=== PATIENT | male | born 1970 | race Hispanic/Latino ===

== ENCOUNTER 2018-03-17 05:37 | Day surgery (SDC) | payer BC, OTHER ==
[2015-01-31 13:45] VITALS: PULSE 75
[2018-03-16 11:16] VITALS: BMI 43.1
[2018-03-17] MEDS ORDERED: Flumazenil 0.1 mg/ml Inj (5ml) IVP ONE (08:25)
[2018-03-17] MEDS ORDERED: Naloxone 0.4 mg/ml Inj (Adult) ONE (08:25)
[2018-03-17] MEDS ORDERED: Midazolam 2 MG/2 ML VIAL ONE ×3 (08:25→08:49)
[2018-03-17] MEDS ORDERED: Midazolam 2 MG/2 ML VIAL IV ONE ×4 (08:26→08:49)
--- NOTE | 2018-03-17 09:37 | CARD ---
APPROVED REPORT Date of service: 03/17/2018 EKG Measurement Heart [id number] <Conclusion> Atrial fibrillation Nonspecific T wave abnormality, probably digitalis effect Abnormal ECG
[2018-03-17 10:49] VITALS: RESP 18; TEMP 97.5
[2018-03-17 11:32] VITALS: O2SAT 98
[2018-03-17 11:43] VITALS: BP 99/62; PULSE 40
--- NOTE | 2018-03-17 15:48 | CARD ---
APPROVED REPORT Date of service: 03/17/2018 EKG Measurement Heart [id number] <Conclusion> Marked sinus bradycardia Abnormal ECG
== END 2018-03-17 11:50 | disposition home or self-care (01) ==
LOC: CATH 05:37
PROVIDERS: ATTEND Internal Medicine Cardiovascular Disease
DX: I48.0 Paroxysmal atrial fibrillation (principal)
CPT/HCPCS: 93005; 92960; J2250; J3010

== ENCOUNTER 2018-07-29 09:39 | Emergency (ER) | payer BC ==
[2018-07-29 09:40] VITALS: PULSE 75; BMI 43.1
[2018-07-29 10:11] VITALS: TEMP 98.3
--- NOTE | 2018-07-29 11:08 | ED PDOC ---
Arrival/HPI - General Chief Complaint: Palpitations Historian: Patient - History of Present Illness Narrative History of Present Illness (Text): 07/29/18 11:00 Bernardo Huber is a 48 year old male, with a past medical history of paroxysmal a-fib and sleep apnea, who presents to the emergency department complaining of intermittent palpitations since yesterday. Patient notes dizziness upon standing. Patient states detecting heart rate in the 120's. P atient's symptoms have currently resolved and are controlled by Sotalol. Patient states having episodes of a-fib every 4-6 months after a stressful event. Patient's last episode was 4 to 6 months ago. 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 Patient denies any fevers, chills, headache, chest pain, shortness of breath, dyspnea on exertion, cough, abdominal pain, nausea, vomiting, diarrhea, back pain, neck pain, or any other complaint. Time/Duration: 24 hours (yesterday) Symptom Onset: Sudden Symptom Course: Resolved Activities at Onset: Light Context: Home Past Medical History - Provider Review Nursing Documentation Reviewed: Yes - Past History Past History: Non-Contributing - Infectious Disease Hx of Infectious Diseases: None - Past Medical History Past Medical History: No Previous - Cardiac Hx Cardiac Disorders: Yes Hx Atrial Fibrillation: Yes - Pulmonary Hx Respiratory Disorders: No - Neurological Hx Neurological Disorder: No - HEENT Hx HEENT Disorder: No - Renal Hx Renal Disorder: No - Endocrine/Metabolic Hx Endocrine Disorders: No - Hematological/Oncological Hx Blood Disorders: Yes Other/Comment: HEMOCHROMATOSIS - Integumentary Hx Dermatological Disorder: No - Musculoskeletal/Rheumatological Hx Musculoskeletal Disorders: No - Gastrointestinal Hx Gastrointestinal Disorders: No - Genitourinary/Gynecological Hx Genitourinary Disorders: No - Psychiatric Hx Psychophysiologic Disorder: No Hx Substance Use: No - Past Surgical History Past Surgical History: No Previous - Surgical History Hx Cardiac Catheterization: Yes - Anesthesia Hx Anesthesia: Yes Hx Anesthesia Reactions: No Hx Malignant Hyperthermia: No - Suicidal Assessment Feels Threatened In Home Enviroment: No Family/Social History - Physician Review Nursing Documentation Reviewed: Yes Family/Social History: No Known Family HX Smoking Status: Never Smoked Hx Alcohol Use: Yes (SOCIAL. QUIT 2014) Hx Substance Use: No Hx Substance Use Treatment: No Allergies/Home Meds Allergies/Adverse Reactions: Allergies MELONS Allergy (Severe, Uncoded 07/29/18 09:56) SWELLING LIPS/THROAT Home Medications: Home Meds Medication Instructions Recorded Confirmed Rivaroxaban [Xarelto] 20 mg PO QPM 01/31/15 07/29/18 ALPRAZolam [Xanax] 0.25 mg PO PRN PRN 03/16/18 07/29/18 Lisinopril [Zestril] 10 mg PO QPM 03/16/18 07/29/18 Sotalol [Betapace] 120 mg PO QAM 03/16/18 07/29/18 Sotalol [Betapace] 180 mg PO QPM 03/17/18 07/29/18 Review of Systems - Physician Review All systems were reviewed & negative as marked: Yes - Review of Systems Constitutional: absent: Fevers, Night Sweats Respiratory: absent: SOB, Cough Cardiovascular: Palpitations (intermittent palpitations). absent: Chest Pain, KAM Gastrointestinal: absent: Abdominal Pain, Diarrhea, Nausea, Vomiting Musculoskeletal: absent: Back Pain, Neck Pain Neurological: Dizziness. absent: Headache Physical Exam Vital Signs Reviewed: Yes Vital Signs Temp Pulse Resp BP Pulse Ox 07/29/18 09:58 98.3 F 60 16 121/60 96 Temperature: Afebrile Blood Pressure: Normal Pulse: Regular Respiratory Rate: Normal Appearance: Positive for: Well-Appearing, Non-Toxic, Comfortable Pain Distress: None Mental Status: Positive for: Alert and Oriented X 3 - Systems Exam Head: Present: Atraumatic, Normocephalic Pupils: Present: PERRL Extroacular Muscles: Present: EOMI Conjunctiva: Present: Normal Mouth: Present: Moist Mucous Membranes Neck: Present: Normal Range of Motion Respiratory/Chest: Present: Clear to Auscultation, Good Air Exchange. No: Respiratory Distress, Accessory Muscle Use Cardiovascular: Present: Normal S1, S2, Irregular Rhythm. No: Murmurs Abdomen: No: Tenderness, Distention, Peritoneal Signs Back: Present: Normal Inspection Lower Extremity: Present: Normal Inspection. No: Edema Skin: Present: Warm, Dry, Normal Color. No: Rashes Psychiatric: Present: Alert, Oriented x 3, Normal Insight, Normal Concentration Medical Decision Making ED Course and Treatment: 07/29/18 11:13 Impression: Patient is a 48 year old male who presents to the emergency department complaining of intermittent palpitations since yesterday with associated dizziness upon standing. Patient has a history of paroxysmal a-fib. Differential Diagnosis included but are not limited to: Plan: -- EKG -- Labs -- Chest X-ray -- Reassess and disposition Prior Visits: Notes and results from previous visits were reviewed. Progress Notes: - RAD Interpretation Narrative RAD Interpretations (Text): 07/29/18 11: Reviewed Chest X-Ray, shows: FINDINGS: LUNGS: No active pulmonary disease. PLEURA: No significant pleural effusion identified, no pneumothorax apparent. CARDIOVASCULAR: No atherosclerotic calcification present No radiographic findings to suggest acute or significant cardiovascular disease. OSSEOUS STRUCTURES: No significant abnormalities. VISUALIZED UPPER ABDOMEN: Normal. OTHER FINDINGS: None. IMPRESSION: No active disease. No significant interval change compared to the prior examination(s). Radiology Orders: 07/29/18 10:56 CHEST PORTABLE [RAD] Stat Freezer Unloader: Radiologist - EKG Interpretation EKG Interpretation (Text): 07/29/18 11:14 EKG: Ordered, reviewed, and independently interpreted the EKG. Rate : 95 BPM Rhythm : A-fib Interpretation : Left axis deviation, PVC's Interpreted by ED Physician: Yes Type: 12 lead EKG - Scribe Statement The provider has reviewed the documentation as recorded by the Scribe Koffi Hidalgo All medical record entries made by the Scribe were at my direction and personally dictated by me. I have reviewed the chart and agree that the record accurately reflects my personal performance of the history, physical exam, medical decision making, and the department course for this patient. I have also personally directed, reviewed, and agree with the discharge instructions and disposition. Disposition/Present on Arrival - Present on Arrival Any Indicators Present on Arrival: No History of DVT/PE: No History of Uncontrolled Diabetes: No Urinary Catheter: No History of Decub. Ulcer: No History Surgical Site Infection Following: None - Disposition Have Diagnosis and Disposition been Completed?: Yes Diagnosis: Atrial fibrillation, Palpitations Disposition: HOME/ ROUTINE Disposition Time: 12:00 Condition: GOOD Discharge Instructions (ExitCare): Atrial Fibrillation (DC) Additional Instructions: BERNARDO HUBER, thank you for letting us take care of you today. The emergency medical care you received today was directed at your acute symptoms. If you were prescribed any medication, please fill it and take as directed. It may take several days for your symptoms to resolve. Return to the Emergency Department if your symptoms worsen, do not improve, or if you have any other problems. Please contact your doctor or call one of the physicians/clinics you have been referred to that are listed on the Patient Visit Information form that is included in your discharge packet. Bring any paperwork you were given at discharge with you along with any medications you are taking to your follow up visit. Our treatment cannot replace ongoing medical care by a primary care provider outside of the emergency department. Thank you for allowing the [facility] team to be part of your care today. Follow up with Dr. Avila today for possible procedure tomorrow. Referrals: Lizandro Avila MD [Staff Provider] - Follow up with primary Donato Sorto MD [Primary Care Provider] - Follow up with primary Forms: Sojern (Indonesian)
--- NOTE | 2018-07-29 11:34 | RAD ---
Date of service: 07/29/2018 HISTORY: Chest pain. COMPARISON: 09/08/2014. FINDINGS: LUNGS: No active pulmonary disease. PLEURA: No significant pleural effusion identified, no pneumothorax apparent. CARDIOVASCULAR: No atherosclerotic calcification present No radiographic findings to suggest acute or significant cardiovascular disease. OSSEOUS STRUCTURES: No significant abnormalities. VISUALIZED UPPER ABDOMEN: Normal. OTHER FINDINGS: None. IMPRESSION: No active disease. No significant interval change compared to the prior examination(s).
[2018-07-29 12:32] LABS: BASO # 0.03 K/mm3 (0.0-2.0); BASO % 0.4 % (0.0-3.0); EOS # 0.1 (0.0-0.7); EOS % 1.9 % (1.5-5.0); HEMOGLOBIN 17.9 g/dL (14.0-18.0); LYMPH # 2.4 (1.2-3.4); LYMPH % 35.7 % (22.0-35.0); MEAN CELL VOLUME 94.3 fl (80.0-105.0); MEAN PLATELET VOLUME 9.7 fl (7.0-11.0); MONO # 0.5 (0.1-0.6); MONO % 6.8 % (1.0-6.0); RBC 5.43 10^6/uL (3.5-6.1); RED CELL DISTRIBUTION WIDTH 12.8 % (11.5-14.5); WHITE BLOOD COUNT 6.7 10^3/uL (4.5-11.0)
[2018-07-29 12:45] LABS: ALB/GLOB RATIO 1.2 (1.1-1.8); ALBUMIN 4.3 g/dL (3.0-4.8); ALT/SGPT 22 U/L (7-56); AST/SGOT 25 U/L (17-59); BLOOD UREA NITROGEN 17 mg/dL (7-21); CALCIUM 9.8 mg/dL (8.4-10.5); GFR NON-AFRICAN AMERICAN > 60
[2018-07-29 12:55] LABS: TROPONIN I < 0.01 ng/mL
[2018-07-29 13:15] LABS: T3 1.2 ng/mL (0.97-1.69)
[2018-07-29 14:22] VITALS: BP 132/77; PULSE 82; RESP 18; O2SAT 97
--- NOTE | 2018-07-29 16:09 | CARD ---
APPROVED REPORT Date of service: 07/29/2018 EKG Measurement Heart [id number] <Conclusion> Atrial fibrillation with premature ventricular or aberrantly conducted complexes Abnormal ECG
== END 2018-07-29 13:25 | disposition home or self-care (01) ==
LOC: ED 09:39
DX: I48.0 Paroxysmal atrial fibrillation (principal); R00.2 Palpitations

== ENCOUNTER 2018-07-31 07:13 | Day surgery (SDC) | payer BC ==
[2018-07-30 11:13] VITALS: BMI 43.4
[2018-07-31] MEDS ORDERED: Propofol 10 mg/ml Inj (20 ML) ONE (10:01)
[2018-07-31] MEDS ORDERED: Glycopyrrolate 0.2 mg/ml (2ml vial) ONE (10:01)
[2018-07-31] MEDS ORDERED: Midazolam 2 MG/2 ML VIAL ONE (10:01)
[2018-07-31 11:44] VITALS: RESP 20; TEMP 97.7
[2018-07-31 12:10] VITALS: PULSE 57; O2SAT 96
[2018-07-31 12:36] VITALS: BP 107/50
--- NOTE | 2018-07-31 14:33 | CARD ---
APPROVED REPORT Date of service: 07/31/2018 EKG Measurement Heart [id number] <Conclusion> Normal sinus rhythm Leftward axis Normal ECG
--- NOTE | 2018-07-31 14:36 | CARD ---
APPROVED REPORT Date of service: 07/31/2018 EKG Measurement Heart [id number] <Conclusion> Atrial fibrillation with premature ventricular or aberrantly conducted complexes Left axis deviation Abnormal ECG
--- NOTE | 2018-08-04 08:59 | PROCN ---
DATE: 07/31/2018 PROCEDURE: Synchronous electrical cardioversion. HISTORY: This is a 48-year-old male with recurrent paroxysmal atrial fibrillation who has been maintained on anticoagulant therapy and Sotalol. He has had recurrent atrial fibrillation and is now brought to the hospital for elective attempted cardioversion. SYNCHRONOUS ELECTRICAL CARDIOVERSION The patient was prepped in the CCU and conscious sedation with propofol was administered by anesthesiology. Once adequate sedation was achieved, the patient underwent synchronous electrical shock with 200 joules, which was unsuccessful in converting him to sinus rhythm. This was repeated with 300 joules with temple of normal sinus rhythm. The patient tolerated the procedure well. He remained hemodynamically stable. CONCLUSION: Successful synchronous cardioversion from atrial fibrillation to sinus rhythm. RECOMMENDATIONS: At this time his current medications will be continued. Given his fairly frequent episodes consideration will be given to referral for possible atrial fibrillation ablation therapy. Lizandro Avila MD MTDAlison
== END 2018-07-31 12:37 | disposition home or self-care (01) ==
LOC: SDSVAS 07:13 → TEE 07:13 → CCU 09:05 → TEE 12:37
PROVIDERS: ATTEND Internal Medicine Cardiovascular Disease
DX: I48.0 Paroxysmal atrial fibrillation (principal); I10 Essential (primary) hypertension; E66.9 Obesity, unspecified
CPT/HCPCS: 92960; 93005; J2704